=== PATIENT | female | born 1980 | race Caucasian/White ===

== ENCOUNTER 2024-02-06 20:47 | Emergency (ER) | payer MEDICAID, SELFPAY ==
[2024-02-06 21:21] VITALS: BP 147/95; PULSE 84; RESP 20; TEMP 36.6
--- NOTE | 2024-02-06 22:14 | ED.GENADULT ---
HPI - General Adult General Date Seen: 02/06/24 Chief complaint: Ear/Nose/Throat Problem Stated complaint: L ear infection Time Seen by Provider: 02/06/24 22:14 History of Present Illness HPI narrative: 43-year-old female with history of previous vertigo year ago, anxiety, opiate use disorder (in remission, on Suboxone) presenting to the ER today with concern for vertigo Most recent checkup was 01/24/[address] Bush through the [facility] clinic. She is on Suboxone total of 24 mg daily to maintain her opiate use disorder. Also diagnosed with anxiety, PTSD, situational stress. Her Suboxone was refilled. She was declining offered referral for therapy/ treatment. She is on Lexapro for anxiety and depression. Dose was increased from 10-20 mg on the . She is using hydroxyzine if needed. She presents to the ER tonight with a couple of concerns. Foremost, she is having dizziness and vertigo symptoms. She reports a history of this dating back to last year. She says she had episodes of dizziness to the point where she thought she was going to ?pass out? and she was seen in the [place] in [place] and diagnosed with vertigo. She says that since then the vertigo happens ?randomly?. It sounds like it happens about every few weeks or so. There is no clear trigger for it. She began having more trouble with vertigo about a week ago, last Tuesday or Tuesday. Since then the vertigo has been present every day but some days are much more symptomatic than others. She is not having any tinnitus. Note other numbness or tingling or weakness in her arms or legs. In addition to the vertigo, she says with each episode she tends to get a feeling behind her right eye that leads to blurry vision in her right eye and then the blurry vision spreads to her left eye. She will also get a headache in or around her right eye. This is been occurring off and on since last year and is associated with the vertigo. She does not have any head trauma. No fever or chills. No other eye trouble. No known exposure to carbon monoxide. She has never been told she has migraine headaches before. She has not had any treatment for the headache or eye pain. Her 2nd complaint is left ear pain. She uses hydrogen peroxide to clean wax out of her ears. She was cleaning her ears tonight and now has pain in her left ear canal. She is not draining anything. No associated fever chills. No swelling of her ear. No pain of her mastoid. No left-sided headache. Related Data Allergies Allergy/AdvReac Type Severity Reaction Status Date / Time No Known Drug Allergies Allergy Verified 02/06/24 23:15 Exam Narrative: Exam Narrative: Constitutional: Appears well-developed and well-nourished. Alert. Conversant. Lying back in the chair and ER room for. Non toxic. HENT: Head: Atraumatic. No depressed skull fracture, Raccoon Eyes, Vega's sign, or hemotympanum. Face normal. TMs normal Right ear: Mastoid, pinna, canal are normal. She does have some fluid behind her TM but no erythema or bulging. No sign of TM perforation. Left ear: Mastoid and PIN are normal. Canal is blocked by cerumen. Using a lighted ear curette I was able to the remove a large clump of brownish cerumen from the ear canal. Behind this there was erythema and a little there purulent drainage on the skin of the ear canal suggestive for an otitis externa. There was alsoanother deeper blockage of cerumen so I am not able to see her TM. We attempted to remove the cerumen using a lighted ear curette but she is too sensitive in that ear canal. Therefore I was not able to visual her TM tonight. There is no signs of any bleeding or drainage from the TM to suggest a perforation. Nose: Nose normal. Mouth/Throat: Oral mucosa is clear and moist. no trismus. Pharynx normal. Tonsils symmetric. No tonsillar enlargement, erythema, or exudate. Eyes: Conjunctivae normal. EOM normal. Pupils equal, round, and reactive to light. No scleral icterus. Neck: Normal range of motion. Neck supple. No tracheal deviation present. Cardiovascular: Normal rate, regular rhythm. No gallop. No friction rub. No murmur heard. Symmetric radial artery pulses Pulmonary/Chest: Effort normal. No stridor. No respiratory distress. No wheezes. No rales. No rhonchi . No tenderness. Abdominal: Soft. Bowel sounds normal. No distension. No mass. No tenderness. No rebound. No guarding. Musculoskeletal: RUE: Normal range of motion. No tenderness. No deformity LUE: Normal range of motion. No tenderness. No deformity RLE: Normal range of motion. No edema. No tenderness. No deformity LLE: Normal range of motion. No edema. No tenderness. No deformity Lymph: No cervical adenopathy. Neurological: Mental status normal. Attention normal. Alert and oriented x3. GCS 15. Memory normal. Speech fluent. Cognition normal. Cranial Nerves intact II-XII except I did not formally test gag or visual acuity. EOMI. Possible very subtle horizontal nystagmus. No vertical nystagmus. Palate elevates symmetrically and tongue protrudes in the midline. Strength: 5/5 trapezius on the right and left 5/5 deltoid on the right and left 5/5 biceps on the right and left 5/5 triceps on the right and left 5/5 retail customer service representative on the right and left 5/5 thumb opposition on the right and left 5/5 finger abduction on the right and left 5/5 hip flexors (L3) on the right and left 5/5 quadriceps (L4) on the right and left 5/5 tibialis anterior on the right and left 5/5 EHL (L5) on the right and left 5/5 gastrocnemius (S1) on the right and left 5/5 hamstring on the right and left Sensation intact to light touch in both upper extremities (C4-T1) Sensation intact to light touch in Both lower extremities (L4-S1). Finger to nose and coordination normal. Gait normal. Skin: Skin is warm and dry. No rash noted. No pallor. Normal capillary refill. Psychiatric: Normal mood. Polite but mildly anxious. Const: Vital Signs, click to edit/add: Vital Signs - 24 hr 02/06/24 21:21 Temperature 97.8 F Pulse Rate [Pulse Oximeter] 84 Respiratory Rate 20 Blood Pressure [14 7/95] 147/95 H Oxygen Delivery Me thod Room Air Course Course ED Course: Recheck-08 06. Patient says she is feeling much better. She has even for discharge. She says she just wanted to get her ear drops. She wants to get home as soon as possible. Since we do not have Cortisporin otic drops in stock in our [facility] we will give her prescription for [facility] for ear drops and she will fill them tonight and start them. She will follow-up with her doctor tomorrow morning. Vital Signs Vital signs: Initial Vital Signs Temperature 97.8 F 02/06/24 21:21 Temperature Source Temporal Artery Scan 02/06/24 21:21 Pulse Rate 84 02/06/24 21:21 Respiratory Rate 20 02/06/24 21:21 Blood Pressure 147/95 H 02/06/24 21:21 Blood Pressure Mean 112 H 02/06/24 21:21 Oxygen Delivery Method Room Air 02/06/24 21:21 Vital Signs Temperature 97.8 F 02/06/24 21:21 Pulse Rate 84 02/06/24 21:21 Respiratory Rate 20 02/06/24 21:21 Blood Pressure 147/95 H 02/06/24 21:21 Oxygen Delivery Method Room Air 02/06/24 21:21 Temperature 97.8 F 02/06/24 21:21 Pulse Rate 84 02/06/24 21:21 Respiratory Rate 20 02/06/24 21:21 Blood Pressure 147/95 H 02/06/24 21:21 Oxygen Delivery Method Room Air 02/06/24 21:21 Medications Administered Medications: Generic Name Dose Route Start Last Admin Trade Name Freq PRN Reason Stop Dose Admin Diphenhydramine HCl 25 mg 02/06/24 23:33 02/06/24 23:53 Diphenhydramine 50 Mg/Ml Inj IVP 25 mg Q6H PRN Administration Discontinued Medications Generic Name Dose Route Start Last Admin Trade Name Freq PRN Reason Stop Dose Admin Ketorolac Tromethamine 15 mg 02/06/24 23:33 02/06/24 23:53 Ketorolac 15 Mg/Ml Inj IVP 02/06/24 23:34 15 mg ONCE ONE Administration Metoclopramide HCl 10 mg 02/06/24 23:33 02/06/24 23:53 Metoclopramide Hcl 5 Mg/Ml Inj IVP 02/06/24 23:34 10 mg ONCE ONE Administration Medical Decision Making MDM Narrative Medical decision making narrative: This patient presents for evaluation of concern dizziness and vertigo associated with nausea as well as with left ear pain. 1. otalgia. The patient has an exam consistent with otitis externa. Differential considered in this patient with otalgia included mastoiditis, meningitis, perforation, cerumen impaction, mass, dental abscess, or peritonsillar abscess, referred pain, cholesteatoma, otitis externa, etc. Tylenol or Ibuprofen for pain. Topical antibiotic drops for the externa are noted below. Return if increasing pain, fever, decrease in hearing or ear discharge. [facility] prescription for Cortisporin otic provided. Follow-up with primary physician in 7-10 days, if symptoms persist and ENT consultation may be needed as outpatient. 2. Vertigo. She reports that she has had episodes of vertigo associated with right retro-orbital headache off and on every few weeks or months since last year. She has been having trouble with that again this week, beginning about 7 or 8 days ago.. The differential diagnosis of vertigo is broad and includes common etiologies such as menieres disease, labyrinthitis, benign positional vertigo, otitis media, etc. More serious etiologies considered include central etiologies such as tumor, intracerebral bleed, dissection, ischemic cerebral vascular accident. The history, physical exam including detailed neurologic exam, and workup in the emergency room suggests a benign cause of vertigo today. Patient feels improved after interventions noted above. Further outpatient management is indicated with vertigo medications. Discussed possible nor imaging with the patient. She says she has never really had imaging before. We discussed that we do have availability of CT scan tonight which would be able to show as intracranial hemorrhage, large intracranial tumors, skull fractures. However CT scan would not be sensitive to evaluate for possible cerebellar stroke (which is felt to be unlikely based on recurrent intermittent symptoms over a year). CT scan would also not shows other conditions such as small tumors, multiple sclerosis. MRI would be more sensitive for these conditions. Using shared decision making we decided hold off on CT scan tonight. Patient says she will follow up with her doctor for a scheduled checkup tomorrow and her doctor can arrange an outpatient MRI for further evaluation of her vertigo. Based on the described pattern of intermittent vertigo associated with right retro-orbital headaches I wonder if this might actually be a migraine syndrome. However other conditions need to be ruled out 1st. At this point I there is any emergent condition based on timing of her symptoms that would necessitate that she be transferred or admitted for emergent neuro imaging. Vertigo precautions given for home. Lab Data Labs: Lab Results 02/06/24 Range/Units 23:40 WBC 8.11 (4.50-11.00) K/uL RBC 4.66 (4.00-5.20) m/uL Hgb 13.0 (12.0-16.0) gm/dL Hct 40.3 (33.0-51.0) % MCV 87 (80-100) fL MCH 28 (26-34) pg MCHC 32 (32-36) gm/dL RDW Coeff of Godfrey 12.8 (11.5-15.5) % Plt Count 202 (140-440) K/uL Neut % (Auto) 61.3 (42.0-72.0) % Lymph % (Auto) 27.6 (20-44) % [place] % (Auto) 6.7 (0.0-11.0) % Eos % (Auto) 3.2 (0.0-7.0) % Baso % (Auto) 0.5 (0.0-3.0) % Neut # (Auto) 4.97 (1.7-7.0) K/uL Lymph # (Auto) 2.24 (0.90-2.90) K/uL [place] # (Auto) 0.50 (0.00-0.90) K/UL Eos # (Auto) 0.26 (0.00-0.50) K/uL Baso # (Auto) 0.04 (0.00-0.30) K/uL Abs Immat Gran (auto) 0.06 (0.00-0.30) K/uL Imm/Tot Granulo (auto) 0.7 % Sodium 140 (135-149) mmol/L Potassium 4.2 (3.6-5.1) mmol/L Chloride 109 (96-114) mmol/L Carbon Dioxide 21 (20-32) mmol/L Anion Gap 10 (7-15) mEq/L BUN 13 (5-24) mg/dL Creatinine 0.7 (0.5-1.5) mg/dL Estimated GFR 111 ml/min Glucose 105 (60-115) mg/dL Calcium 8.5 (8.4-10.6) mg/dL HCG, Qual Negative (Negative) Discharge Plan Discharge Clinical Impression: Otitis externa, Vertigo Patient Disposition: Home, Self-Care Condition: Stable Instructions: Swimmer's Ear (ED), Vertigo (DC) Additional Instructions: As we discussed, please recheck with your regular doctor tomorrow morning. If you have worsening symptoms or any problem, please come back to the ER right away. Use the ear drops 3 drops into your left ear 4 times daily for 7 days. Follow Up/Referrals: Provider,Not a Local [Primary Care Provider] - Stand Alone Forms: Feedjit Info Instructions
[2024-02-06 23:50] LABS: Basophils Absolute Auto 0.04 K/uL (0.00-0.30); Basophils Percent Auto 0.5 % (0.0-3.0); Eosinophils Absolute Auto 0.26 K/uL (0.00-0.50); Eosinophils Percent Auto 3.2 % (0.0-7.0); Hematocrit 40.3 % (33.0-51.0); Immature Granulocytes Abs Auto 0.06 K/uL (0.00-0.30); Immature Granulocytes Pct Auto 0.7 %; Lymphocytes Absolute Auto 2.24 K/uL (0.90-2.90); Lymphocytes Percent Auto 27.6 % (20-44); Mean Corpuscular HGB Conc 32 gm/dL (32-36); Mean Corpuscular Hemoglobin 28 pg (26-34); Mean Corpuscular Volume 87 fL (80-100); Monocytes Percent Auto 6.7 % (0.0-11.0); Neutrophils Absolute Auto 4.97 K/uL (1.7-7.0); Neutrophils Percent Auto 61.3 % (42.0-72.0); Platelet Count* 202 K/uL (140-440); RDW Coefficient of Variation % 12.8 % (11.5-15.5); Red Blood Count 4.66 m/uL (4.00-5.20); White Blood Count* 8.11 K/uL (4.50-11.00)
[2024-02-06] MEDS: METOCLOPRAMIDE HCL 5 MG/ML INJ 10 MG IVP (23:53)
[2024-02-06] MEDS: diphenhydrAMINE 50 MG/ML inj 25 MG IVP (23:53)
[2024-02-06] MEDS: KETOROLAC 15 MG/ML inj IVP (23:53)
[2024-02-06 23:54] LABS: Slide Review Reflex No
[2024-02-07 00:02] LABS: Chloride* 109 mmol/L (96-114); Potassium* 4.2 mmol/L (3.6-5.1); Sodium* 140 mmol/L (135-149)
[2024-02-07 00:05] LABS: Anion Gap 10 mEq/L (7-15); Blood Urea Nitrogen* 13 mg/dL (5-24); Carbon Dioxide* 21 mmol/L (20-32); Creatinine* 0.7 mg/dL (0.5-1.5); Estimated Glomerular Filt Rate 111 ml/min; Glucose* 105 mg/dL (60-115)
[2024-02-07 00:06] LABS: Calcium* 8.5 mg/dL (8.4-10.6)
[2024-02-07 00:12] LABS: HCG Qualitative Serum* Negative (Negative)
== END 2024-02-07 00:30 | disposition home or self-care (01) ==
PROVIDERS: Emergency Provider Emergency Medicine
DX: R42 Dizziness and giddiness (principal); H60.92 Unspecified otitis externa, left ear
CPT/HCPCS: 36415; 80048; 84703; 85025; 96374; 96375; 99283; 99284; J1200; J1885; J2765

== ENCOUNTER 2024-03-05 16:47 | Emergency (ER) | payer MEDICAID, SELFPAY ==
[2024-03-05 17:01] VITALS: BP 136/87; PULSE 98; RESP 18; TEMP 36.3; O2SAT 99; BMI 23.0
--- NOTE | 2024-03-05 17:30 | CRLHL7_ITS ---
For Patients: As a result of the Century Cures Act, medical imaging exams and procedure reports are released immediately into your electronic medical record. You may view this report before your referring provider. If you have questions, please contact your health care provider. INDICATION: Dizziness. TECHNIQUE: Noncontrast CT images of the brain. COMPARISON: None. FINDINGS: The ventricles and sulci are within normal limits for patient age. No mass effect or midline shift. The branch-white differentiation is maintained. No acute intracranial hemorrhage or pathologic extra-axial fluid collection. The globes are symmetric. The calvarium is intact. The visualized paranasal sinuses and mastoid air cells are clear. IMPRESSION: No acute intracranial hemorrhage or mass effect. Please note that all CT scans at this facility use dose modulation, iterative reconstruction, and/or weight-based dosing when appropriate to reduce radiation dose to as low as reasonably achievable. Dictated by Chris Marcelino MD @ 03/05/2024 6:22:46 PM (Electronically Signed)
--- NOTE | 2024-03-05 17:46 | ED.DIZZY ---
HPI - Dizziness General Date Seen: 03/05/24 Chief Complaint: Dizziness/Vertigo Stated Complaint: Dizziness Time Seen by Provider: 03/05/24 17:00 Source: patient Mode of arrival: ambulatory Limitations: no limitations History of Present Illness HPI Narrative: Patient is a 43-year-old female with a history of intermittent dizziness for the past year presenting to the emergency department for dizziness. She states since her in September 2022 showed have these random episodes of dizziness that occur frequently. She is already seeing a neurologist as well as working with her primary care provider for this dizziness. She has been told in the past it is vertigo. States she has never had any head imaging done she has asked her primary care provider to do an MRI. They are trying her on migraine medication 1st. She states it is not helping. Has also tried meclizine without any improvement in her symptoms. Has had a therapist try the Achilles maneuver without any resolution in her symptoms. States she feels a discomfort by her right eye that radiates to her left eye quickly. States she will have some improvement symptoms if she presses on her temper region right behind both eyes. States the symptoms have been going for the past 3 days and or 1 of her longer episodes. Has had some improvement with fluids administration in the past. States she is eating and drinking now. Denies fevers, chills, chest pain, shortness of breath, abdominal pain, diarrhea, constipation, nausea, weakness, numbness. Related Data Home Medications ?Medication ?Instructions ?Recorded ?Confirmed buprenorphine 12 mg-naloxone 3 mg film sublingual 03/05/24 sublingual film (Suboxone) dextroamphetamine-amphetamine ER 1 cap PO DAILY 03/05/24 03/05/24 20 mg 24hr capsule,extend release escitalopram oxalate 10 mg tablet mg PO 03/05/24 escitalopram oxalate 20 mg tablet 20 mg PO DAILY 03/05/24 03/05/24 gabapentin 100 mg capsule mg PO 03/05/24 gabapentin 300 mg capsule 300 mg PO DAILY 03/05/24 03/05/24 hydrocodone 5 mg-acetaminophen 325 tab 03/05/24 mg tablet hydroxyzine pamoate 50 mg capsule mg PO BID 03/05/24 ibuprofen 600 mg tablet 600 mg PO Q6H PRN pain 03/05/24 03/05/24 magnesium oxide 400 mg (241.3 mg 400 mg PO DAILY 03/05/24 03/05/24 magnesium) tablet meclizine 25 mg tablet 25 mg PO BID PRN 03/05/24 03/05/24 naloxone 4 mg/actuation nasal spray intranasal 03/05/24 Allergies Allergy/AdvReac Type Severity Reaction Status Date / Time No Known Drug Allergies Allergy Verified 02/06/24 23:15 Review of Systems Status of ROS: Reports: 10 or more systems reviewed and unremarkable except as noted in History and below PFSH PFS Social History Smoking Status: Former smoker Do you use any of these nicotine containing products: None How often do you have a drink containing alcohol: never AUDIT-C Alcohol total score: 0 Non-prescribed substance use: former substance user service: No Exam Narrative: Exam Narrative: Const: Well-nourished, Well-developed, in mild distress Eyes: PERRL, no conjunctival injection, and symmetrical lids HENT: Atraumatic external nose and ears. Moist mucous membranes. Neck: Symmetric, trachea midline, No thyromegaly. CVS: RRR, No murmurs or gallops. Peripheral pulses 2+ and equal in all extremities RESP: Unlabored respiratory effort. Clear to auscultation bilaterally. GI: Nontender/Nondistended, No rebound or guarding. MSK:Extremities w/o deformity, Normal Active ROM Skin: Warm, Dry. No rashes or lesions. Neuro: Normal Muscle tone, No focal neurological deficits. Normal decayed with head impulse test, normal test of skew, horizontal nystagmus to the right. Symptoms worsened when she looks right. Psych: Awake, Alert, & Oriented x3. Appropriate mood and affect. Const: Vital Signs, click to edit/add: Vital Signs - 24 hr 03/05/24 17:01 Temperature 97.3 F L Pulse Rate [Pulse Oximeter] 98 Respiratory Rate 18 Blood Pressure [Ri ght Upper Arm] 136/87 Pulse Oximetry 99 Oxygen Delivery Me thod Room Air Course Vital Signs Vital signs: Initial Vital Signs Temperature 97.3 F L 03/05/24 17:01 Temperature Source Temporal Artery Scan 03/05/24 17:01 Pulse Rate 98 03/05/24 17:01 Pulse Rhythm Regular 03/05/24 17:01 Respiratory Rate 18 03/05/24 17:01 Blood Pressure 136/87 03/05/24 17:01 Blood Pressure Mean 103 03/05/24 17:01 Blood Pressure Position Sitting 03/05/24 17:01 Pulse Oximetry 99 03/05/24 17:01 Oxygen Delivery Method Room Air 03/05/24 17:01 Vital Signs Temperature 97.3 F L 03/05/24 17:01 Pulse Rate 98 03/05/24 17:01 Respiratory Rate 18 03/05/24 17:01 Blood Pressure 136/87 03/05/24 17:01 Pulse Oximetry 99 03/05/24 17:01 Oxygen Delivery Method Room Air 03/05/24 17:01 Temperature 97.3 F L 03/05/24 17:01 Pulse Rate 98 03/05/24 17:01 Respiratory Rate 18 03/05/24 17:01 Blood Pressure 136/87 03/05/24 17:01 Pulse Oximetry 99 03/05/24 17:01 Oxygen Delivery Method Room Air 03/05/24 17:01 Medications Administered Medications: Discontinued Medications Generic Name Dose Route Start Last Admin Trade Name Eliane PRN Reason Stop Dose Admin Diphenhydramine HCl 25 mg 03/05/24 17:30 03/05/24 17:58 Diphenhydramine 50 Mg/Ml Inj IVP 03/05/24 17:31 25 mg ONCE ONE Administration Lactated Ringer's 1,000 mls @ 1,000 mls/hr 03/05/24 17:30 03/05/24 17:59 Lactated Ringers 1000 Ml IV 03/05/24 18:29 1,000 mls/hr .Q1H ONE Administration Ketorolac Tromethamine 15 mg 03/05/24 17:30 03/05/24 17:58 Ketorolac 15 Mg/Ml Inj IVP 03/05/24 17:31 15 mg ONCE ONE Administration Metoclopramide HCl 10 mg 03/05/24 17:30 03/05/24 17:58 Metoclopramide Hcl 5 Mg/Ml Inj IVP 03/05/24 17:31 10 mg ONCE ONE Administration MDM - Dizziness MDM Narrative Medical decision making narrative: Patient is a 43-year-old female presenting for dizziness. The differential diagnosis of vertigo is broad and includes common etiologies such as menieres disease, labyrinthitis, benign positional vertigo, otitis media, etc. More serious etiologies considered include central etiologies such as tumor, intracerebral bleed, dissection, ischemic cerebral vascular accident. Based on her history this seems very unlikely to be a central cause. Also the hints exam points to a peripheral cause versus central. She has tried meclizine or ready and has taken multiple pills today so I would not try any other dose. I will do head CT those as she has not had any previous head imaging for these multiple episodes. Also give a migraine cocktail as that seems to have helped her in the past. Lab work returned showing no concerning abnormalities. Head CT showed no concerning abnormalities as reviewed by myself and the radiologist. Patient's did improve after the treatment. She feels good enough to go home. Patient will be discharged. Lab Data Labs: Lab Results 03/05/24 Range/Units 18:00 WBC 8.57 (4.50-11.00) K/uL RBC 4.81 (4.00-5.20) m/uL Hgb 13.3 (12.0-16.0) gm/dL Hct 40.7 (33.0-51.0) % MCV 85 (80-100) fL MCH 28 (26-34) pg MCHC 33 (32-36) gm/dL RDW Coeff of Godfrey 12.8 (11.5-15.5) % Plt Count 242 (140-440) K/uL Neut % (Auto) 58.1 (42.0-72.0) % Lymph % (Auto) 30.2 (20-44) % [place] % (Auto) 7.7 (0.0-11.0) % Eos % (Auto) 3.3 (0.0-7.0) % Baso % (Auto) 0.6 (0.0-3.0) % Neut # (Auto) 4.98 (1.7-7.0) K/uL Lymph # (Auto) 2.59 (0.90-2.90) K/uL [place] # (Auto) 0.70 (0.00-0.90) K/UL Eos # (Auto) 0.28 (0.00-0.50) K/uL Baso # (Auto) 0.05 (0.00-0.30) K/uL Abs Immat Gran (auto) 0.01 (0.00-0.30) K/uL Imm/Tot Granulo (auto) 0.1 % Sodium 139 (135-149) mmol/L Potassium 3.6 (3.6-5.1) mmol/L Chloride 109 (96-114) mmol/L Carbon Dioxide 22 (20-32) mmol/L Anion Gap 8 (7-15) mEq/L BUN 15 (5-24) mg/dL Creatinine 1.0 (0.5-1.5) mg/dL Estimated Creat Clear 80.06 Estimated GFR 73 ml/min Glucose 93 (60-115) mg/dL Calcium 9.1 (8.4-10.6) mg/dL Imaging Data CT scan - head: Attestation: I have reviewed the pertinent imaging results. Radiologist's impression: No acute intracranial hemorrhage or mass effect. Please note that all CT scans at this facility use dose modulation, iterative reconstruction, and/or weight-based dosing when appropriate to reduce radiation dose to as low as reasonably achievable. Dictated by Chris Marcelino MD @ 03/05/2024 6:22:46 PM ECG Data Attestation: I personally reviewed and interpreted this ECG as follows: Prior ECG tracings: not available for review Interpretation: Normal sinus rhythm with a rate of 85 beats per minute, normal intervals, axis overall normal but does lean to the right. No ST or T-wave abnormalities. Discharge Plan Discharge Clinical Impression: Benign paroxysmal positional vertigo Qualifiers: Laterality: unspecified laterality Qualified Code(s): H81.10 - Benign paroxysmal vertigo, unspecified ear Patient Disposition: Home, Self-Care Condition: Improved Instructions: Vertigo (DC) Additional Instructions: Continue to follow-up with your primary care provider and neurologist. Make sure to stay well hydrated. Return to emergency department for new or worsening symptoms. Prescriptions: No Action hydrocodone-acetaminophen 5-325 mg tablet Patient Comments: PLEASE SEE ATTACHED FOR DETAILED DIRECTIONS hydroxyzine pamoate 50 mg capsule PO BID magnesium oxide 400 mg (241.3 mg magnesium) tablet 400 mg PO DAILY dextroamphetamine-amphetamine 20 mg capsule,extended release 24hr 1 cap PO DAILY meclizine 25 mg tablet 25 mg PO BID PRN gabapentin 300 mg capsule 300 mg PO DAILY gabapentin 100 mg capsule PO ibuprofen 600 mg tablet 600 mg PO Q6H PRN (Reason: pain) escitalopram oxalate 10 mg tablet PO escitalopram oxalate 20 mg tablet 20 mg PO DAILY buprenorphine-naloxone [Suboxone] 12-3 mg film sublingual naloxone 4 mg/actuation spray,non-aerosol INTRANASAL Patient Comments: [NO ORIGINAL SIG] Follow Up/Referrals: Provider,Not a Local [Primary Care Provider] - Stand Alone Forms: Bringme Info Instructions
[2024-03-05] MEDS: KETOROLAC 15 MG/ML inj IVP (17:58)
[2024-03-05] MEDS: METOCLOPRAMIDE HCL 5 MG/ML INJ 10 MG IVP (17:58)
[2024-03-05] MEDS: diphenhydrAMINE 50 MG/ML inj 25 MG IVP (17:58)
[2024-03-05] MEDS: LACTATED RINGERS 1000 ML 1,000 ML IV (17:59)
[2024-03-05 18:15] LABS: Basophils Absolute Auto 0.05 K/uL (0.00-0.30); Basophils Percent Auto 0.6 % (0.0-3.0); Eosinophils Absolute Auto 0.28 K/uL (0.00-0.50); Eosinophils Percent Auto 3.3 % (0.0-7.0); Hematocrit 40.7 % (33.0-51.0); Hemoglobin* 13.3 gm/dL (12.0-16.0); Immature Granulocytes Abs Auto 0.01 K/uL (0.00-0.30); Immature Granulocytes Pct Auto 0.1 %; Lymphocytes Absolute Auto 2.59 K/uL (0.90-2.90); Lymphocytes Percent Auto 30.2 % (20-44); Mean Corpuscular HGB Conc 33 gm/dL (32-36); Mean Corpuscular Hemoglobin 28 pg (26-34); Mean Corpuscular Volume 85 fL (80-100); Monocytes Percent Auto 7.7 % (0.0-11.0); Neutrophils Absolute Auto 4.98 K/uL (1.7-7.0); Neutrophils Percent Auto 58.1 % (42.0-72.0); Platelet Count* 242 K/uL (140-440); RDW Coefficient of Variation % 12.8 % (11.5-15.5); Red Blood Count 4.81 m/uL (4.00-5.20); White Blood Count* 8.57 K/uL (4.50-11.00)
[2024-03-05 18:34] LABS: Chloride* 109 mmol/L (96-114)
[2024-03-05 18:35] LABS: Potassium* 3.6 mmol/L (3.6-5.1); Sodium* 139 mmol/L (135-149)
[2024-03-05 18:36] LABS: Slide Review Reflex No
[2024-03-05 18:37] LABS: Est. Creatinine Clearance* 80.06; Estimated Glomerular Filt Rate 73 ml/min
[2024-03-05 18:38] LABS: Anion Gap 8 mEq/L (7-15); Blood Urea Nitrogen* 15 mg/dL (5-24); Calcium* 9.1 mg/dL (8.4-10.6); Carbon Dioxide* 22 mmol/L (20-32); Glucose* 93 mg/dL (60-115)
== END 2024-03-05 19:10 | disposition home or self-care (01) ==
PROVIDERS: Emergency Provider Student in an Organized Health Care Education/Training Program; PCP Student in an Organized Health Care Education/Training Program
DX: H81.11 Benign paroxysmal vertigo, right ear (principal)
CPT/HCPCS: 36415; 70450; 80048; 85025; 93005; 96361; 96374; 96375; 99283; 99284; 99285; J1200; J1885; J2765; J7120

== ENCOUNTER 2025-06-23 06:48 | Emergency (ER) | payer OTHER, SELFPAY ==
--- OUTSIDE RECORDS SUMMARY | 2025-06-23 06:50 | XMS_ITS | Clinical Summary ---
Author Organization [facility] Address [address] [place] [address] Care Team Providers Care Office Admin Name Role Phone Nuvia Bush MD Primary Care Prov ider Allergies No known active allergies Medications No known medications Active Problems Problem Noted Date Diagnosed Date Anxiety 11/02/2023 Impaired concentration 12/07/2022 Overview (11/02/2023): States she had ADHD in childhood and was on stimulants during that time. Stimulants restarted in 2022. Other specified counseling 12/07/2022 Resolved Problems Problem Noted Date Diagnosed Date Resolved Date Opioid use disorder, moderat e, in early remission 11/02/2023 01/17/2025 Family History Medical History Relation Name Comments Aortic aneurysm Father Skin cancer Maternal Grandmother Clotting disorder Mother On Coumadi n for recurrent DVT Hypertension Mother No Known Problems Paternal Grandfather No Known Problems Paternal Grandmother Relation Name Status Comments Father Maternal Grandfather Maternal Grandmother Mother Alive Paternal Grandfather Paternal Grandmother Social History Tobacco Use Types Packs/Day Years Used Date Smoking Tobacco: Former Cigarettes 0.3 20 0 08/08/1999 - 08/08/2019 Passive Smoke Exposure: Never Smokeless Tobacco: Never Comments:Started smoking at age 18 and stopped in 2020 Alcohol Use Standard Drinks/Week Comments Yes 0 (1 standard drink = 0.6 oz pur e alcohol) rare PHQ-2 Answer Date Recorded PHQ-2 TOTAL SCORE 0 01/17/2025 Interpersonal Safety Answer Date Record ed Are you being hit, kicked, p ushed or yelled at (see row info)? No 10/11/2023 Interpersonal Safety Abuse 12 - 18 Not on file 10/11/2023 Interpersonal Safety Ambulatory Vulnerability No t on file 10/11/2023 Comments No Sex and Gender Information Value Date Recorded Sex Assigned at Not on file Legal Sex Female 4:46 PM CDT Gender Identity Not on file Sexual Orientation Not on file Obstetrics History Last Filed Vital Signs Vital Sign Reading Time Taken Comments Blood Pressure 139/80 01/17/2025 2:05 PM CDT Pulse 80 01/17/2025 2:05 PM CDT Temperature 36.7 C (98.1 F) 10/11/2023 8:36 AM MASTIC SPRAYER Respiratory Rate 20 10/11/2023 8:36 AM MASTIC SPRAYER Oxygen Saturation 98% 02/28/2024 8:30 AM CDT Inhaled Oxygen Concentration - - Weight 92.1 kg (203 lb) 01/17/2025 2:05 PM CDT Height 179.1 cm (5' 10.5) 01/17/2025 2:05 PM CD T Body Mass Index 28.72 01/17/2025 2:05 PM CDT Plan of Treatment Health Maintenance Due Date Last Done Comments Tetanus booster 1993 Hepatitis B series for 19+ (1 of 3 - 19+ 3-dose series) 2001 HPV series for age 9-45 (1 - 3-dose SCDM series) 2009 Influenza Vaccine (#1) 2025 BMI (ht and wt on same day) for age 18+ 01/17/2026 01/17/2025, 11/08/2023 Depression screening for age 12+ 01/17/2026 01/17/2025, 10/28/2023, 10/25/2023 Pap test for age 21-65 02/01/2026 3 (Verified in Care Everywhere or Patient Record) RSV vaccine for adults or (1 - 1-dose 75+ series) 2057 HIV for age 15-65 Completed 01/17/2025 Hepatitis C screening for age 18-79 Completed 01/17/2025 Pneumococcal series for age 6-49 Aged Out No longer eligible based on patient's age to complete this topic Procedures Procedure Name Priority Date/Time Associated Diagnosis Comments ANTI HIV 1/2 Routine 01/17/2025 3:04 PM CDT Screening for HIV without presence of risk factors ANTI HCV Routine 01/17/2025 3:04 PM CDT Encounter for HCV screening test for low risk patient from Last 3 Months or Most Recently Relevant to Health Maintenance Results * ANTI HCV (01/17/2025 3:04 PM CDT) HEPATITIS C ANTIBODY NON-REACTI VE NON-REACT LEXI [facility] Comment: HCV antibody was non-reactive. There is no laboratory evidence of HCV infection. In most cases, no further action is required. However, if recent HCV exposure is suspected, a test for HCV RNA (test code 42015) is suggested. For additional information please refer to http://education.[employer]/faq/SBB72c6 (This link is being provided for informational/ educational purposes only.) Blood BLOOD SPECIMEN / Unknown 01/17/2025 3:04 PM CDT 01/17/2025 3:06 PM CDT Margaret Woodard INSIDE SALES ENGINEER SEND OUTS Final Res ult [employer] [facility] [address] [place] [address], [facility] [address] [place] [address] * ANTI HIV 1/2 (01/17/2025 3:04 PM CDT) HIV AG/AB, 4TH GEN NON-REACT LEXI NON-REACT LEXI [facility] Comment: HIV-1 antigen and HIV-1/HIV-2 antibodies were not detected. There is no laboratory evidence of HIV infection. PLEASE NOTE: This information has been disclosed to you from records whose confidentiality may be protected by state law. If your state requires such protection, then the state law prohibits you from making any further disclosure of the information without the specific written consent of the person to whom it pertains, or as otherwise permitted by law. A general authorization for the release of medical or other information is NOT sufficient for this purpose. For additional information please refer to http://education.[employer]/faq/PYX118 (This link is being provided for informational/ educational purposes only.) The performance of this assay has not been clinically validated in patients less than 2 years old. Blood BLOOD SPECIMEN / Unknown 01/17/2025 3:04 PM CDT 01/17/2025 3:06 PM CDT Margaret Woodard INSIDE SALES ENGINEER [employer] Final Res ult [employer] [facility] [address] [place] [address], [facility] [address] [place] [phone] from Last 3 Months or Most Recently Relevant to Health Maintenance Care Teams Office Admin Relationship Specialty Start Date End Date Nuvia Bush MD PCP - General Family Practice 11/08/23
[2025-06-23 06:53] VITALS: BP 121/87; PULSE 106; RESP 21; TEMP 36.9; O2SAT 96; BMI 25.8
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
[2025-06-23] MEDS: diazePAM 5 MG/ML inj IV (07:49)
[2025-06-23 08:01] VITALS: O2SAT 98
[2025-06-23 09:07] VITALS: BP 124/81; PULSE 70; RESP 18; O2SAT 98
== END 2025-06-23 09:07 | disposition home or self-care (01) ==
PROVIDERS: Emergency Provider Family Medicine
DX: R42 Dizziness and giddiness (principal); R51.9 Headache, unspecified; F41.9 Anxiety disorder, unspecified; F17.210 Nicotine dependence, cigarettes, uncomplicated; Z59.6 Low income; Z59.71 Insufficient health insurance coverage; Z59.48 Other specified lack of adequate food
CPT/HCPCS: 94761; 96361; 96374; 99284; J3360; J7030

== ENCOUNTER 2025-08-03 15:18 | Emergency (ER) | payer OTHER, SELFPAY ==
--- OUTSIDE RECORDS SUMMARY | 2025-08-03 15:20 | XMS_ITS | Clinical Summary ---
Author Organization [facility] Address [address] [place] [address] Care Team Providers Care Preparole Counseling Aide Name Role Phone Nuvia Bush MD Primary Care Prov ider Allergies No known active allergies Medications No known medications Active Problems ProblemNoted DateDiagnosed EkscKdykulr86/27/2024Impaired mgupdnevbjqju19/02/2023 Overview (11/02/2023): States she had ADHD in childhood and was on stimulants during that time. Stimulants restarted in 2022. Other specified gkpqguxchc10/02/2023 Resolved Problems ProblemNoted DateDiagnosed DateResolved DateOpioid use disorder, moderate, in early vicaououh98/07/2025 Family History Medical HistoryRelationNameCommentsAortic aneurysmFatherSkin cancerMaternal GrandmotherClotting disorderMotherOn Coumadin for recurrent DVTHypertension MotherNo Known ProblemsPaternal GrandfatherNo Known ProblemsPaternal Grandmother RelationNameStatusCommentsFatherDeceasedMaternal GrandfatherDeceasedMaternal GrandmotherDeceasedMotherAlivePaternal GrandfatherDeceasedPaternal Grandmother Social History Tobacco UseTypesPacks/DayYears UsedDateSmoking Tobacco: FormerCigarettes0.320 08/08/1999 - 08/08/2019Passive Smoke Exposure: NeverSmokeless Tobacco: Never Comments:Started smoking at age 18 and stopped in 2020 Alcohol UseStandard Drinks/WeekCommentsYes0 (1 standard drink = 0.6 oz pure alcohol)rarePHQ-2AnswerDate RecordedPHQ-2 TOTAL ETLWK999/12/2025Interpersonal SafetyAnswerDate RecordedAre you being hit, kicked, pushed or yelled at (see row info)?No10/11/2023Interpersonal Safety Abuse 12 - 18Not on file10/11/2023 Interpersonal Safety Ambulatory VulnerabilityNot on file10/11/2023 CommentsNoSex and Gender InformationValueDate RecordedSex Assigned at BirthNot on fileLegal MrgApjlmy73/14/2023 4:46 PM CDTGender IdentityNot on fileSexual OrientationNot on file Last Filed Vital Signs Vital SignReadingTime TakenCommentsBlood Jpxlvbfw849/80001/17/2025 2:05 PM CDT Eovrx2354/12/2025 2:05 PM TNASuyzlvpqzyo19.7 ??C (98.1 ??F)10/11/2023 8:36 AM CSTRespiratory Fczd615510/11/2023 8:36 AM CSTOxygen Lpzaleeesw56%02/28/2024 8:30 AM CDTInhaled Oxygen Concentration--Nhgcbc33.1 kg (203 lb)01/17/2025 2:05 PM CDT Vrvpsg399.1 cm (5' 10.5)01/17/2025 2:05 PM CDTBody Mass Index28.72001/17/2025 2:05 PM CDT Plan of Treatment Health MaintenanceDue DateLast DoneCommentsTetanus dehgnsu5708/28/1993Hepatitis B series for 19+ (1 of 3 - 19+ 3-dose series)2001HPV series for age 9-45 (1 - 3-dose SCDM series)2009COVID-19 vaccine series ( season) 2025Influenza Vaccine (#1)5BMI (ht and wt on same day) for age 18+, 11/08/2023epression screening for age 12+01/17/2026 01/17/2025, 10/28/2023, 10/25/2023ap test for age 21-650 (Verified in Care Everywhere or Patient Record)HIV for age 15-65Completed 01/17/2025Hepatitis C screening for age 18-76Euxriacof45/12/2025Pneumococcal series for age 6-49Aged OutNo longer eligible based on patient's age to complete this topic Procedures Procedure NamePriorityDate/TimeAssociated DiagnosisCommentsANTI HIV 1/2Routine 01/17/2025 3:04 PM CDT Screening for HIV without presence of risk factors ANTI WHSHoiijjd58/12/2025 3:04 PM CDT Encounter for HCV screening test for low risk patient from Last 3 Months or Most Recently Relevant to Health Maintenance Results * ANTI HCV (01/17/2025 3:04 PM CDT)ComponentValueRef RangeTest MethodAnalysis TimePerformed AtPathologist SignatureHEPATITIS C ANTIBODYNON-REACTIVE NON-REACTIVEOceansblue Systems-Perham Health HospitaleComment: HCV antibody was non-reactive. There is no laboratory evidence of HCV infection. In most cases, no further action is required. However, if recent HCV exposure is suspected, a test for HCV RNA (test code 80790) is suggested. For additional information please refer to http://education.[employer]/faq/IUL66z6 (This link is being provided for informational/ educational purposes only.) Specimen (Source)Anatomical Location / LateralityCollection Method / Volume Collection TimeReceived TimeBloodBLOOD SPECIMEN / Rqfqjbz9001/17/2025 3:04 PM CDT 01/17/2025 3:06 PM CDT Narrative Authorizing ProviderResult TypeResult StatusJessica E Woodard NPSEND OUTSFinal ResultPerforming OrganizationAddressCity/State/ZIP CodePhone Number [employer] [facility] [address] [place] [address], [facility] [address] [place] [address] * ANTI HIV 1/2 (01/17/2025 3:04 PM CDT)ComponentValueRef RangeTest Method Analysis TimePerformed AtPathologist SignatureHIV AG/AB, 4TH GENNON-REACTIVE NON-REACTIVEOceansblue Systems-M Health Fairview Ridges Hospitalomment: HIV-1 antigen and HIV-1/HIV-2 antibodies were not detected. There is no laboratory evidence of HIV infection. PLEASE NOTE: This information has been disclosed to you from records whose confidentiality may be protected by state law. ??If your state requires such protection, then the state law prohibits you from making any further disclosure of the information without the specific written consent of the person to whom it pertains, or as otherwise permitted by law. A general authorization for the release of medical or other information is NOT sufficient for this purpose. ?? For additional information please refer to http://education.[employer]/faq/CKV649 (This link is being provided for informational/ educational purposes only.) The performance of this assay has not been clinically validated in patients less than 2 years old. Specimen (Source)Anatomical Location / LateralityCollection Method / Volume Collection TimeReceived TimeBloodBLOOD SPECIMEN / [id number]/17/2025 3:04 PM CDT 01/17/2025 3:06 PM CDT Narrative Authorizing ProviderResult TypeResult StatusJessica E Woodard NPSEND OUTSFinal ResultPerforming OrganizationAddressCity/State/ZIP CodePhone Number [employer] [facility] [address] [place] [address], [facility] [address] [place] [address] from Last 3 Months or Most Recently Relevant to Health Maintenance Care Teams Team MemberRelationshipSpecialtyStart DateEnd Date Nuvia Bush MD PCP - GeneralFamily Practice11/08/23
[2025-08-03 15:44] VITALS: BP 120/78; PULSE 82; RESP 16; TEMP 37.4; O2SAT 98; BMI 29.4
--- NOTE | 2025-08-03 16:11 | ED.GENADULT ---
HPI - General Adult General Date Seen: 08/03/25 Chief complaint: Dental/Oral/Mouth Injury/Pain Stated complaint: Left jaw swealing Time Seen by Provider: 08/03/25 16:02 History of Present Illness HPI narrative: 44-year-old female presenting to the ER today with swelling of her left jaw. She reports that she has 2 teeth on left lower jaw that are broken (apparently after eating Taffy). She has woke up this morning with pain and swelling on her left jaw. She has a history of anxiety, opiate use disorder (previously on Suboxone), history of vertigo. She has been off Suboxone does not been using any opiates for the past couple of years. She otherwise generally healthy. No history of diabetes, cancer, immunosuppression. She does have trouble with her teeth. She says she broke 1 of the molars on her left mandible about a month ago and she has she was eating some laugh the Taffy that a co-worker gave her. The next day part of the molar behind that were also broke. She has not been having any pain in that area. She has been trying to wait for her dental insurance to kick) she just got a new job at [employer]) and will go see a dentist as soon as she is able. She has not been having any pain or swelling around those teeth. However when she woke up this morning she had pain in her left lower jaw and new swelling in her left cheek. She does not have a fever. No swelling under the bottom of her mandible. No swelling inside of her mouth. No sore throat. No trouble swallowing. No trouble breathing. Her mother works in the dental clinic at the [employer] and has been trying to encourage her to go see a dentist for these teeth, but she has been putting it off because she is waiting for her dental insurance. Related Data Home Medications ?Medication ?Instructions ?Recorded ?Confirmed dextroamphetamine-amphetamine ER 1 cap PO DAILY 03/05/24 06/23/25 20 mg 24hr capsule,extend release escitalopram oxalate 10 mg tablet mg PO 03/05/24 05/02/24 escitalopram oxalate 20 mg tablet 20 mg PO DAILY 03/05/24 05/02/24 gabapentin 100 mg capsule mg PO 03/05/24 05/02/24 gabapentin 300 mg capsule 300 mg PO DAILY 03/05/24 05/02/24 hydrocodone 5 mg-acetaminophen 325 tab 03/05/24 05/02/24 mg tablet hydroxyzine pamoate 50 mg capsule mg PO BID 03/05/24 05/02/24 ibuprofen 600 mg tablet 600 mg PO Q6H PRN pain 03/05/24 06/23/25 magnesium oxide 400 mg (241.3 mg 400 mg PO DAILY 03/05/24 05/02/24 magnesium) tablet meclizine 25 mg tablet 25 mg PO BID PRN 03/05/24 05/02/24 naloxone 4 mg/actuation nasal spray intranasal 03/05/24 05/02/24 Previous Rx's ?Medication ?Instructions ?Recorded diazepam 5 mg tablet (Valium) 2.5 - 5 mg (0.5 - 1 x 5 mg) PO BID 06/23/25 PRN dizziness #6 tabs amoxicillin 500 mg capsule 1,000 mg (2 x 500 mg) PO BID #40 08/03/25 caps hydrocodone 5 mg-acetaminophen 325 1 - 2 tab PO Q4-6H PRN pain #10 08/03/25 mg tablet tabs Allergies Allergy/AdvReac Type Severity Reaction Status Date / Time No Known Drug Allergies Allergy Verified 06/23/25 07:01 [facility] Social History Smoking Status: Current some day smoker Do you use any of these nicotine containing products: Vaping Products How often do you have a drink containing alcohol: never AUDIT-C Alcohol total score: 0 Non-prescribed substance use: former substance user service: No Exam Narrative: Exam Narrative: Constitutional: Appears well-developed and well-nourished. Alert. Conversant. Non toxic. HENT: Head: Atraumatic. Nose: Nose normal. Mouth/Throat: Oral mucosa is clear . Mucous membranes are moist. no trismus. No some bed tubular swelling. Pharynx normal. Tonsils symmetric. No tonsillar enlargement, erythema, or exudate. She has generally good teeth. She has does have dental caries affecting her right mandibular 1st molar and the 1st 2 molars on her left mandible (teeth number 18 and 19). She appears to be status post extraction of her wisdom teeth. She does not have any gingival erythema swelling adjacent to the molars on the left mandible. I do not feel or visualized any palpable submandibular swelling, gingival abscess. She does has have visible swelling of her left cheek adjacent to the mandible but no swelling underneath the angle of the mandible or in her submandibular space. There is no palpable fluctuance in the left cheek to suggest an abscess. Eyes: Conjunctivae normal. EOM normal. Pupils equal, round, and reactive to light. No scleral icterus. Neck: Normal range of motion. Neck supple. No tracheal deviation present. Cardiovascular: Normal rate, regular rhythm. No gallop. No friction rub. No murmur heard. Pulmonary/Chest: Effort normal. No stridor. No respiratory distress. No wheezes. No rales. No rhonchi Musculoskeletal: RUE: Normal range of motion. No tenderness. No deformity LUE: Normal range of motion. No tenderness. No deformity RLE: Normal range of motion. No edema. No tenderness. No deformity LLE: Normal range of motion. No edema. No tenderness. No deformity Lymph: No cervical adenopathy. Neurological: Alert and oriented to person, place, and time. Normal strength. CN II-VII intact. No sensory deficit. GCS eye subscore is 4. GCS verbal subscore is 5. GCS motor subscore is 6. Normal coordination Skin: Skin is warm and dry. No rash noted. No pallor. Normal capillary refill. Psychiatric: Normal mood. Normal affect. Const: Vital Signs, click to edit/add: Vital Signs - 24 hr 08/03/25 15:44 Temperature 99.4 F Pulse Rate [Pulse Oximeter] 82 Respiratory Rate 16 Blood Pressure [Ri ght Upper Arm] 120/78 Pulse Oximetry 98 Oxygen Delivery Me thod Room Air Course Vital Signs Vital signs: Initial Vital Signs Temperature 99.4 F 08/03/25 15:44 Temperature Source Temporal Artery Scan 08/03/25 15:44 Pulse Rate 82 08/03/25 15:44 Respiratory Rate 16 08/03/25 15:44 Blood Pressure 120/78 08/03/25 15:44 Blood Pressure Mean 92 08/03/25 15:44 Blood Pressure Position Sitting 08/03/25 15:44 Pulse Oximetry 98 08/03/25 15:44 Oxygen Delivery Method Room Air 08/03/25 15:44 Vital Signs Temperature 99.4 F 08/03/25 15:44 Pulse Rate 82 08/03/25 15:44 Respiratory Rate 16 08/03/25 15:44 Blood Pressure 120/78 08/03/25 15:44 Pulse Oximetry 98 08/03/25 15:44 Oxygen Delivery Method Room Air 08/03/25 15:44 Temperature 99.4 F 08/03/25 15:44 Pulse Rate 82 08/03/25 15:44 Respiratory Rate 16 08/03/25 15:44 Blood Pressure 120/78 08/03/25 15:44 Pulse Oximetry 98 08/03/25 15:44 Oxygen Delivery Method Room Air 08/03/25 15:44 Medications Administered Medications: Discontinued Medications Generic Name Dose Route Start Last Admin Trade Name Tonyq PRN Reason Stop Dose Admin Hydrocodone Bitart/Acetaminophen 1 tab 08/03/25 16:27 08/03/25 16:55 Hydrocodone-Acetamin 5-325 Mg 1 Tab PO 08/03/25 16:28 1 tab ONCE ONE Administration Amoxicillin 1,000 mg 08/03/25 16:27 08/03/25 16:55 Amoxicillin 250 Mg Capsule PO 08/03/25 16:28 1,000 mg ONCE ONE Administration Medical Decision Making [facility] Narrative Medical decision making narrative: This patient presents with a pain on her left mandible and swelling of her left cheek adjacent left mandible.. The differential diagnosis includes: cracked tooth syndrome, pulpitis, sub-apical abscess, amongst others. Clinical presentation is most consistent with dental caries of the front 2 molars of the left mandible with an adjacent facial cellulitis. There is no gingival abscess detected around the tooth amenable to incision and drainage. I do not feel any clear abscess within the soft tissue of the cheek. There is no evidence of buccinator/canine space infections, significant facial swelling, or Noah's angina. There are no posterior pharyngeal space infections detected. I do think the patient is to start on antibiotics for this dental infection. Will start on amoxicillin 1000 mg b.i.d.. Prescription for a 10 day supply provided. She also needs something for pain control. She does not think [id number] meds will be adequate. She does have a history of opiate use disorder but is confident that with a short supply of opiates she cannot create a new cycle of addiction. I did give her 1 [place] here in the ER and a prescription for total of 10 tablets. We cannot refill opiate prescriptions for her dental pain here in the ER. Follow up with a dentist/deck builder in the coming days is indicated for further work up and treatment. Instructions for return to the ER were reviewed with the patient. Discharge Plan Discharge Clinical Impression: Dental infection, Cellulitis of face Patient Disposition: Home, Self-Care Condition: Stable Instructions: Dental Abscess (ED), Cellulitis (ED) Additional Instructions: As we discussed, please continue on the antibiotic twice daily for the next 10 days. Monitor the area of swelling on your left jaw carefully. If it is getting bigger or spreading underneath her jaw or to other parts of her face, please see your doctor or dentist or come back to the ER right away. Use caution with prescription pain killers because they are addictive. They can cause dizziness, drowsiness, and can cause constipation. We cannot give refills for pain killers from the ER, but we wanted to come back to the ER any time if your infection is getting worse. Prescriptions: New hydrocodone-acetaminophen 5-325 mg tablet 1 - 2 tab PO Q4-6H PRN (Reason: pain) Qty: 10 0RF amoxicillin 500 mg capsule 1,000 mg PO BID Qty: 40 0RF No Action diazepam [Valium] 5 mg tablet 2.5 - 5 mg PO BID PRN (Reason: dizziness) Qty: 6 0RF hydrocodone-acetaminophen 5-325 mg tablet Patient Comments: PLEASE SEE ATTACHED FOR DETAILED DIRECTIONS hydroxyzine pamoate 50 mg capsule PO BID magnesium oxide 400 mg (241.3 mg magnesium) tablet 400 mg PO DAILY dextroamphetamine-amphetamine 20 mg capsule,extended release 24hr 1 cap PO DAILY meclizine 25 mg tablet 25 mg PO BID PRN gabapentin 300 mg capsule 300 mg PO DAILY gabapentin 100 mg capsule PO ibuprofen 600 mg tablet 600 mg PO Q6H PRN (Reason: pain) escitalopram oxalate 10 mg tablet PO escitalopram oxalate 20 mg tablet 20 mg PO DAILY naloxone 4 mg/actuation spray,non-aerosol INTRANASAL Patient Comments: [NO ORIGINAL SIG] Follow Up/Referrals: Provider,Not a Local [Primary Care Provider, Family Practice] Stand Alone Forms: [facility] Info Instructions
[2025-08-03] MEDS: HYDROCODONE-ACETAMIN 5-325 MG 1 TAB PO (16:55)
[2025-08-03] MEDS: AMOXICILLIN 250 MG CAPSULE 1000 MG PO (16:55)
== END 2025-08-03 17:01 | disposition home or self-care (01) ==
LOC: ED 16:45
PROVIDERS: Emergency Provider Emergency Medicine
DX: L03.211 Cellulitis of face (principal); K04.7 Periapical abscess without sinus
CPT/HCPCS: 99282; 99284; A9270